=== PATIENT | male | born 1950 | race Caucasian/White ===

== ENCOUNTER 2018-01-07 02:00 | Emergency (ER) | payer OTHER, MEDICARE ==
[2018-01-07 02:17] VITALS: TEMP 98.1
[2018-01-07] MEDS ORDERED: SODIUM CHLORIDE 0.9% 1,000 ML IV STA (02:52)
[2018-01-07 03:22] LABS: Basophils % (A) 0 %; Eosinophils % (A) 0 %; HCT 37.3 % (39.0-53.0); HGB 12.2 gm/dL (13.0-17.5); Lymphocytes # (A) 1.2 k/uL (1.0-4.8); Lymphocytes % (A) 12 %; MCH 29.5 pg (25.0-35.0); MCHC 32.6 g/dL (31.0-37.0); MCV 90.5 fL (80.0-100.0); Mean Platelet Volume 7.6; Monocytes # (A) 0.5 k/uL (0-1.0); Monocytes % (A) 5 %; Neutrophils # (A) 7.9 k/uL (1.3-7.7); Neutrophils % (A) 82 %; Platelet Count 194 k/uL (150-450); RBC 4.12 m/uL (4.30-5.90); RDW 13.5 % (11.5-15.5); WBC 9.7 k/uL (3.8-10.6)
[2018-01-07 03:34] LABS: ALT 40 U/L (21-72); AST 24 U/L (17-59); Albumin 3.7 g/dL (3.5-5.0); Alkaline Phosphatase 42 U/L (38-126); Anion Gap 7 mmol/L; Blood Urea Nitrogen 32 mg/dL (9-20); Calcium 9.1 mg/dL (8.4-10.2); Carbon Dioxide 25 mmol/L (22-30); Chloride 105 mmol/L (98-107); Glucose 175 mg/dL (74-99); Magnesium 1.9 mg/dL (1.6-2.3); Potassium 4.2 mmol/L (3.5-5.1); Sodium 137 mmol/L (137-145); Total Bilirubin 0.9 mg/dL (0.2-1.3)
[2018-01-07 03:42] LABS: INR 1.1 (<1.2); Prothrombin Time 10.8 sec (9.0-12.0)
[2018-01-07 03:51] LABS: Creatine Kinase 257 U/L (55-170)
[2018-01-07 04:04] LABS: Creatine Kinase MB 3.1 ng/mL (0.0-2.4); Troponin I <0.012 ng/mL (0.000-0.034)
[2018-01-07 04:06] LABS: Partial Thromboplastin Time 18.3 sec (22.0-30.0)
--- NOTE | 2018-01-07 04:10 | CT ---
EXAMINATION TYPE: CT abdomen pelvis w con DATE OF EXAM: 01/07/2018 COMPARISON: None HISTORY: No prior, syncope and rectal bleeding CT DLP: 911.00 mGycm Automated exposure control for dose reduction was used. TECHNIQUE: Helical acquisition of images was performed from the lung bases through the pelvis. CONTRAST: Performed without Oral Contrast and with IV Contrast, patient injected with 100 mL of Isovue 300. FINDINGS: Lung bases are clear of consolidation. There is no pleural effusion. Liver spleen pancreas gallbladder appear normal. Bile ducts are not dilated. There is no adrenal mass . Kidneys show satisfactory contrast opacification. There is no hydronephrosis. There is a 1 cm corti ronald cyst medial right kidney. The ureters are not dilated. There is no retroperitoneal adenopathy. Ab dominal aorta is atheromatous. Bladder distends smoothly. There are numerous phleboliths in the pelvi s. There is no free fluid in the pelvis. There is no mesenteric adenopathy or edema. I see no intestinal wall thickening. There are no dilated loops. There is no inguinal hernia. Appendix is not seen. There is no sign of appendicitis. Abdomina l aorta is atheromatous. There are spondylotic changes in the lumbar spine. Bony pelvis appears intac t. There is degenerative disc space narrowing at L2-3 L3-4. There is some colonic diverticulosis with out diverticulitis. IMPRESSION: MINIMAL DIVERTICULOSIS. OTHERWISE NEGATIVE EXAM. Mild lumbar spondylotic changes.
--- NOTE | 2018-01-07 04:22 | ED ---
General Adult HPI - General Source: patient, family, RN notes reviewed Mode of arrival: ambulatory Limitations: no limitations <Alexis Montano P - Last Filed: 01/07/18 04:44> <Yaneth Mejia P - Last Filed: 01/07/18 05:40> - General Chief complaint: GI Bleed Stated complaint: Rectal bleeding Time Seen by Provider: 01/07/18 02:24 - History of Present Illness Initial comments: 67-year-old male with a past medical history of type 2 diabetes and MIpresents to the emergency department for a chief complaint of GI bleed 2 hours. Patient states that he has had difficulty having bowel movements over the past few months. He states that he has been using Fleet enemas which do give him a soft bowel movement usually. Patient states that today he took a fleet enema about 12 hours ago. Patient states that since that time he started to have increased abdominal pain. Patient states pain is a sharp and cramping pain in his lower abdomen. Patient states that he was sleeping tonight when he had a severe pain in the abdomen. Patient states he got up to use the bathroom when he became syncopal and fell onto the bed. Patient states he does believe he lost consciousness. Patient states that he when he woke up he did feel clammy. He states he then went to the bathroom and noted severe GI bleed into the toilet. Patient states he does not think he passed any stool but passed significant amount of blood. Patient states he has had a colonoscopy about 6 years ago and was diagnosed with diverticulosis. Patient states pain has mostly resolved at this time. Patient has no other complaints at this time including shortness of breath, chest pain, nausea or vomiting, headache, or visual changes. (Alexis Montano) - Related Data Allergies Allergy/AdvReac Type Severity Reaction Status Date / Time propoxyphene [From Darvon] Allergy Rash/Hives Verified 01/07/18 02:17 Review of Systems ROS Other: All systems not noted in ROS Statement are negative. <Alexis Montano P - Last Filed: 01/07/18 04:44> ROS Other: All systems not noted in ROS Statement are negative. <Yaneth Mejia P - Last Filed: 01/07/18 05:40> ROS Statement: Those systems with pertinent positive or pertinent negative responses have been documented in the HPI. Past Medical History Past Medical History: Diabetes Mellitus, Myocardial Infarction ([place]) Additional Past Medical History / Comment(s): angina, arthritis. Liver pockets in colon History of Any Multi-Drug Resistant Organisms: None Reported Past Surgical History: Heart Catheterization Past Psychological History: PTSD Smoking Status: Light tobacco smoker Past Alcohol Use History: Rare Past Drug Use History: None Reported <Alexis Montano P - Last Filed: 01/07/18 04:44> General Exam Limitations: no limitations General appearance: alert, in no apparent distress Head exam: Present: atraumatic, normocephalic, normal inspection Eye exam: Present: normal appearance, PERRL, EOMI. Absent: scleral icterus, conjunctival injection, periorbital swelling ENT exam: Present: normal exam, normal oropharynx, mucous membranes moist Neck exam: Present: normal inspection, full ROM. Absent: tenderness, meningismus, lymphadenopathy Respiratory exam: Present: normal lung sounds bilaterally. Absent: respiratory distress, wheezes, rales, rhonchi, stridor Cardiovascular Exam: Present: regular rate, normal rhythm, normal heart sounds. Absent: systolic murmur, diastolic murmur, rubs, gallop, clicks GI/Abdominal exam: Present: soft, tenderness (Mild generalized abdominal tenderness worse in the left lower quadrant without guarding or rebound), normal bowel sounds. Absent: distended, guarding, rebound, rigid Rectal exam: Present: normal rectal tone, heme (+) stool, bloody stool. Absent : fecal impaction, mass Neurological exam: Present: alert, oriented X3, CN II-XII intact Psychiatric exam: Present: normal affect, normal mood <Alexis Montano P - Last Filed: 01/07/18 04:44> Vital Signs 01/07/18 01/07/18 01/07/18 02:11 04:10 04:52 Temperature 98.1 F Pulse Rate 89 74 72 Respiratory 18 14 16 Rate Blood Pressure 113/73 138/71 102/57 O2 Sat by Pulse 99 97 96 Oximetry EKG Findings - EKG Comments: EKG Findings:: EKG shows a normal sinus rhythm, ventricular rate 77, LA interval 178, QRS duration 102, QTC of 459 <Alexis Montano P - Last Filed: 01/07/18 04:44> Medical Decision Making - Lab Data Result diagrams: 01/07/18 02:34 01/07/18 02:34 <Alexis Montano P - Last Filed: 01/07/18 04:44> - Lab Data Result diagrams: 01/07/18 02:34 01/07/18 02:34 <Yaneth Mejia - Last Filed: 01/07/18 05:40> - Medical Decision Making 49-year-old male presents to the emergency department for a chief complaint of GI bleed occurring about 2 hours ago. Patient states that he used a Fleet enema earlier today and it caused severe abdominal cramping. Patient states that he was trying to sleep and he had severe pain and got up she is the bathroom. Patient states that he became syncopal and fell onto the bed at this time. Patient states he then went to the bathroom and had a bowel movement consisting of mostly blood. Patient states he felt clammy at that time and became concerned about the bleed. He denies any chest pain or shortness of breath. He does have a history of a hemorrhagic ulcer years ago. On exam patient does have mild generalized abdominal tenderness worse in the left lower quadrant. No rebound or guarding on exam. Rectal exam was positive for occult blood Hemoglobin stable at 12.2. CBC and CMP unremarkable. Troponin less than 0.012. CK-MB 3.1 and total creatine kinase 257. EKG did not show any evidence of ST elevation or depression. CT showed diverticulosis with an otherwise normal exam. Patient likely experienced a syncopal episode from GI bleed. At this time patient is feeling much better and pain is controlled. Patient is stable and states he is ready to go home. Patient was educated to take 3 or 4. MiraLAX per day for the next week which she has at home. He will also continue to take his stool softeners. Patient will follow-up with GI. He will return if he has any worsening symptoms which she agrees to do (Alexis Montano) I was available for consultation in the emergency department. The history and physical exam were done by the midlevel provider. I was consulted for this patient's care. I reviewed the case with the midlevel provider and based on their presentation of the patient, I agree with the assessment, medical decision making and plan of care as documented. (Yaneth Mejia) - Lab Data Lab Results 01/07/18 01/07/18 01/07/18 Range/Units 02:34 02:34 02:34 WBC 9.7 (3.8-10.6) k/uL RBC 4.12 L (4.30-5.90) m/uL Hgb 12.2 L (13.0-17.5) gm/dL Hct 37.3 L (39.0-53.0) % MCV 90.5 (80.0-100.0) fL MCH 29.5 (25.0-35.0) pg MCHC 32.6 (31.0-37.0) g/dL RDW 13.5 (11.5-15.5) % Plt Count 194 (150-450) k/uL Neutrophils % 82 % Lymphocytes % 12 % Monocytes % 5 % Eosinophils % 0 % Basophils % 0 % Neutrophils # 7.9 H (1.3-7.7) k/uL Lymphocytes # 1.2 (1.0-4.8) k/uL Monocytes # 0.5 (0-1.0) k/uL Eosinophils # 0.0 (0-0.7) k/uL Basophils # 0.0 (0-0.2) k/uL PT (9.0-12.0) sec INR (<1.2) APTT (22.0-30.0) sec Sodium 137 (137-145) mmol/L Potassium 4.2 (3.5-5.1) mmol/L Chloride 105 (98-107) mmol/L Carbon Dioxide 25 (22-30) mmol/L Anion Gap 7 mmol/L BUN 32 H (9-20) mg/dL Creatinine 0.93 (0.66-1.25) mg/dL Est GFR (CKD-EPI)AfAm >90 (>60 ml/min/1.73 sqM) Est GFR (CKD-EPI)NonAf 84 (>60 ml/min/1.73 sqM) Glucose 175 H (74-99) mg/dL Calcium 9.1 (8.4-10.2) mg/dL Magnesium 1.9 (1.6-2.3) mg/dL Total Bilirubin 0.9 (0.2-1.3) mg/dL AST 24 (17-59) U/L ALT 40 (21-72) U/L Alkaline Phosphatase 42 (38-126) U/L Total Creatine Kinase 257 H (55-170) U/L CK-MB (CK-2) 3.1 H (0.0-2.4) ng/mL CK-MB (CK-2) Rel Index 1.2 Troponin I <0.012 (0.000-0.034) ng/mL Total Protein 6.0 L (6.3-8.2) g/dL Albumin 3.7 (3.5-5.0) g/dL Stool Occult Blood (Negative) 01/07/18 01/07/18 Range/Units 02:34 02:58 WBC (3.8-10.6) k/uL RBC (4.30-5.90) m/uL Hgb (13.0-17.5) gm/dL Hct (39.0-53.0) % MCV (80.0-100.0) fL MCH (25.0-35.0) pg MCHC (31.0-37.0) g/dL RDW (11.5-15.5) % Plt Count (150-450) k/uL Neutrophils % % Lymphocytes % % Monocytes % % Eosinophils % % Basophils % % Neutrophils # (1.3-7.7) k/uL Lymphocytes # (1.0-4.8) k/uL Monocytes # (0-1.0) k/uL Eosinophils # (0-0.7) k/uL Basophils # (0-0.2) k/uL PT 10.8 (9.0-12.0) sec INR 1.1 (<1.2) APTT 18.3 L (22.0-30.0) sec Sodium (137-145) mmol/L Potassium (3.5-5.1) mmol/L Chloride (98-107) mmol/L Carbon Dioxide (22-30) mmol/L Anion Gap mmol/L BUN (9-20) mg/dL Creatinine (0.66-1.25) mg/dL Est GFR (CKD-EPI)AfAm (>60 ml/min/1.73 sqM) Est GFR (CKD-EPI)NonAf (>60 ml/min/1.73 sqM) Glucose (74-99) mg/dL Calcium (8.4-10.2) mg/dL Magnesium (1.6-2.3) mg/dL Total Bilirubin (0.2-1.3) mg/dL AST (17-59) U/L ALT (21-72) U/L Alkaline Phosphatase (38-126) U/L Total Creatine Kinase (55-170) U/L CK-MB (CK-2) (0.0-2.4) ng/mL CK-MB (CK-2) Rel Index Troponin I (0.000-0.034) ng/mL Total Protein (6.3-8.2) g/dL Albumin (3.5-5.0) g/dL Stool Occult Blood Positive (Negative) Disposition Is patient prescribed a controlled substance at d/c from ED?: No Time of Disposition: 04:46 <Alexis Montano P - Last Filed: 01/07/18 04:44> <Yaneth Mejia P - Last Filed: 01/07/18 05:40> Clinical Impression: Hematochezia Disposition: HOME SELF-CARE Condition: Good Instructions: Gastrointestinal Bleeding (ED) Additional Instructions: Please take 3 or 4 cap fulls of MiraLAX per day and continue stool softeners. Please follow up with GI in 1-2 days. Return immediately to the emergency department if you have any worsening symptoms. Referrals: Dean Adrian DO [Primary Care Provider] - 1-2 days Fernando Arteaga MD [STAFF PHYSICIAN] - 1-2 days
[2018-01-07 04:53] VITALS: BP 102/57; PULSE 72; RESP 16
== END 2018-01-07 04:56 | disposition home or self-care (01) ==
LOC: EC 02:00
DX: K92.1 Melena (principal); R55 Syncope and collapse; K57.90 Diverticulosis of intestine, part unspecified, without perforation or abscess without bleeding; F17.200 Nicotine dependence, unspecified, uncomplicated; Z87.19 Personal history of other diseases of the digestive system; Z98.890 Other specified postprocedural states; Z88.5 Allergy status to narcotic agent
CPT/HCPCS: 36415; 93005; 80053; 82550; 82553; 83735; 84484; 85025; 85610; 85730; 82272; 74177; 99285; 96360; 96361; Q9967

== ENCOUNTER 2018-01-16 07:56 | Day surgery (SDC) | payer MEDICARE, OTHER ==
[2018-01-14 11:20] VITALS: BMI 25.3
[~2018-01-16 07:56] MED LIST: LACTATED RINGERS 1,000 ML IV SCH
[2018-01-16 08:19] VITALS: TEMP 97.8
[2018-01-16] MEDS ORDERED: LIDOCAINE 1% 20 ML VIAL (10MG/ML) FOR IV START INTRADERMA ONE (08:42)
[2018-01-16 08:48] LABS: Glucose,Whole Blood 100 mg/dL (75-99)
[2018-01-16] MEDS ORDERED: PROPOFOL 10 MG/ML 20 ML VIAL IV ONE (09:20)
[2018-01-16] MEDS ORDERED: LIDOCAINE 1% INJ 10MG/ML (20 ML MDV) ONE (09:20)
[2018-01-16 10:08] VITALS: RESP 16
--- NOTE | 2018-01-16 10:17 | P.PCN ---
Date of Procedure: 01/16/18 Procedure(s) Performed: Procedures: 1. Esophagogastroduodenoscopy and biopsy. 2. Total colonoscopy. Preoperative diagnosis: History of GI bleeding. Postoperative diagnosis: 1. Small sliding hiatal hernia with no obvious esophagitis or complicated reflux disease. 2. Mild gastritis and duodenitis with no ulcers or active bleeding. 3. Biopsies obtained from the antrum and esophagus. 4. Colon exam reveals diffuse diverticulosis but no evidence of acute diverticulitis, strictures, polyps or cancer. 4. No angiodysplasia, bleeding or potential sources of bleeding. 5. Low-grade internal hemorrhoids without bleeding at the time of this exam. Preparation: HalfLytely prep. Sedation: Was provided by anesthesia. Brief clinical history: The patient is a 67-year-old male who is scheduled for this evaluation because of an episode of GI bleeding that he had around 2 weeks ago that lasted several days. It was mostly fresh bleeding per rectum. The patient denied any significant GI complaints other than his bleeding. The patient was evaluated in the emergency room and was subsequently referred to our practice at that he was evaluated at the [facility]. Procedure: With the patient on his left lateral decubitus position and after informed consent and adequate sedation, I passed the Olympus-GIF 160 video upper endoscope through the cricopharyngeus down the esophagus. GE junction was around 40-41 cm from the incisors and there was a small sliding hiatal hernia with no obvious esophagitis or complicated reflux disease. The endoscope was then passed into the stomach which was insufflated with air and inspected in detail including the retroflex view in the cardia. There was some erythema and mottling most obvious in the antrum and prepyloric area with few scattered fading erosions. There were no ulcers or active bleeding. Pyloric channel did not show any ulcers. Duodenal bulb showed some erythema but no ulcers or erosions. Post bulbar area and descending duodenum appeared healthy. I obtained biopsies from the antrum and esophagus then the endoscope was withdrawn and I proceeded with the colonoscopy. Perianal area did not show any fissures or fistulas. There were no masses felt on digital rectal examination. The Olympus CFQ 160L video colonoscope was then inserted in the rectum in the usual fashion and advanced to the cecum. There were multiple diverticular orifices noted scattered along the length of the bowel with was no evidence of acute diverticulitis or strictures. The mucosa appeared healthy. There was no polyps or tumors. No angiodysplasia or other potential sources of bleeding or any evidence of bleeding at the time of this exam. I retroflexed the endoscope in the rectum before the endoscope was withdrawn. Low-grade internal hemorrhoids were noted with no evidence of bleeding. The patient tolerated the procedure well. Plan: The patient was reassured. Discussed dietary measures. Will await biopsy results and make further plans based on his course.
[2018-01-16 10:28] VITALS: BP 159/90; PULSE 68
== END 2018-01-16 11:32 | disposition home or self-care (01) ==
LOC: ORWHC2ENDO 07:56
DX: K29.50 Unspecified chronic gastritis without bleeding (principal); B96.81 Helicobacter pylori [H. pylori] as the cause of diseases classified elsewhere; K20.9 Esophagitis, unspecified; K44.9 Diaphragmatic hernia without obstruction or gangrene; K29.80 Duodenitis without bleeding; K57.90 Diverticulosis of intestine, part unspecified, without perforation or abscess without bleeding; K64.8 Other hemorrhoids; I25.10 Atherosclerotic heart disease of native coronary artery without angina pectoris; I10 Essential (primary) hypertension; F17.290 Nicotine dependence, other tobacco product, uncomplicated; I25.2 Old myocardial infarction; J38.01 Paralysis of vocal cords and larynx, unilateral; E11.9 Type 2 diabetes mellitus without complications; Z79.84 Long term (current) use of oral hypoglycemic drugs; Z79.899 Other long term (current) drug therapy; Z88.5 Allergy status to narcotic agent
CPT/HCPCS: 88305; 45378; 43239; J2001; J2704

== ENCOUNTER 2020-05-25 10:20 | Emergency (ER) | payer OTHER, MEDICARE ==
[2020-05-25 10:55] VITALS: BP 125/77; PULSE 65; RESP 18; TEMP 98
--- NOTE | 2020-05-25 12:09 | ED ---
Lower Extremity Injury HPI - General Source: patient, RN notes reviewed Mode of arrival: ambulatory Limitations: no limitations <Pal Genao - Last Filed: 05/25/20 13:36> <Devi Hall - Last Filed: 05/31/20 23:28> - General Chief Complaint: Extremity Injury, Lower Stated Complaint: leg pain Time Seen by Provider: 05/25/20 12:02 - History of Present Illness Initial Comments: Patient is a 70-year-old male that presents to emergency department complaining of right lower extremity pain. He notes that he does not have any swelling redness or tenderness. He notes that [facility] [place] [facility] they [facility] here to rule out a DVT. He notes that they also told to quit taking his 80 mg of atorvastatin due to side effect of muscle cramps and spasms. He notes that he is awoken from sleep regularly with like charley horse type pains and cramping. He denied any weakness numbness tingling or decreased range of motion or strength fever fatigue chills chest pendulous breath headache nausea vomiting diarrhea constipation (Pal Genao) - Related Data Home Medications Medication Instructions Recorded Confirmed Aspirin 325 mg PO DAILY 01/14/18 05/25/20 Atorvastatin [Lipitor] 40 mg PO HS 01/14/18 05/25/20 Lidocaine 5% Patch [Lidoderm] 1 patch TOPICAL DAILY 01/14/18 05/25/20 Metoprolol Tartrate [Lopressor] 25 mg PO BID 01/14/18 05/25/20 Prazosin HCl 2 mg PO HS MDD TAKES FOR PTSD 01/14/18 05/25/20 metFORMIN HCL [Glucophage] 500 mg PO BID 01/14/18 05/25/20 Ketotifen 0.025% Ophth Soln 1 drop BOTH EYES BID 05/25/20 05/25/20 [Zaditor] Lisinopril-Hctz 10-12.5 mg 1 tab PO DAILY 05/25/20 05/25/20 [Zestoretic 10-12.5] Sennosides/Docusate Sodium [Senna 2 tab PO BID 05/25/20 05/25/20 Plus 8.6-50 mg Tablet] Previous Rx's Medication Instructions Recorded Baclofen [Lioresal] 5 mg PO TID 7 Days #21 tablet 05/25/20 Allergies Allergy/AdvReac Type Severity Reaction Status Date / Time propoxyphene [From Darvon] Allergy Rash/Hives Verified 05/25/20 12:33 Review of Systems ROS Other: All systems not noted in ROS Statement are negative. <Pal Genao - Last Filed: 05/25/20 13:36> ROS Other: All systems not noted in ROS Statement are negative. <Devi Hall - Last Filed: 05/31/20 23:28> ROS Statement: Those systems with pertinent positive or pertinent negative responses have been documented in the HPI. Past Medical History Past Medical History: Chest Pain / Angina, Diabetes Mellitus, GI Bleed, Hyperlipidemia, Hypertension, Myocardial Infarction ([place]), Osteoarthritis ([place]), Sleep Apnea/CPAP/BIPAP Additional Past Medical History / Comment(s): occasional angina relieved with rest ., Hx of irregular heart beat., DDD with back pain., ischemic heart ., Hx of fatty liver., Agent [place] Exposure., sleep apnea (no machine), Diverticulosis., Hx of bleeding ulcer (1995), wears right knee brace., constipation . Last Myocardial Infarction Date:: ? LATE OR EARLY History of Any Multi-Drug Resistant Organisms: None Reported Past Surgical History: Appendectomy, Back Surgery, Heart Catheterization Additional Past Surgical History / Comment(s): HEART CATH ([facility]., CERVICAL SURGERY with plate-USED BONE FROM HIS HIP . skin cancer removed from chest Past Anesthesia/Blood Transfusion Reactions: Previous Problems w/ Anesthesia Additional Past Anesthesia/Blood Transfusion Reaction / Comment(s): PT STATES WITH CERVICAL SURGERY- VOCAL CORD WAS CUT AND HE COULD NOT SPEAK FOR 8-12 MONTHS. Past Psychological History: PTSD Smoking Status: Never smoker Past Alcohol Use History: Rare Past Drug Use History: None Reported - Past Family History Brother(s) Family Medical History: Deep Vein Thrombosis (DVT) Sister(s) Family Medical History: Deep Vein Thrombosis (DVT) Daughter(s) Family Medical History: Pulmonary Embolus Additional Family Medical History / Comment(s): PE x 12 months <Pal Genao - Last Filed: 05/25/20 13:36> General Exam Limitations: no limitations General appearance: alert, in no apparent distress Head exam: Present: atraumatic, normocephalic, normal inspection Eye exam: Present: normal appearance, PERRL, EOMI. Absent: scleral icterus, conjunctival injection, periorbital swelling ENT exam: Present: normal exam, mucous membranes moist Respiratory exam: Present: normal lung sounds bilaterally. Absent: respiratory distress, wheezes, rales, rhonchi, stridor Cardiovascular Exam: Present: regular rate, normal rhythm, normal heart sounds. Absent: systolic murmur, diastolic murmur, rubs, gallop, clicks GI/Abdominal exam: Present: soft, normal bowel sounds. Absent: distended, tenderness, guarding, rebound, rigid Extremities exam: Present: normal inspection, full ROM, normal capillary refill, other (Right knee brace was often the exam.). Absent: tenderness, pedal edema, joint swelling, calf tenderness Neurological exam: Present: alert, oriented X3, CN II-XII intact Psychiatric exam: Present: normal affect, normal mood Skin exam: Present: warm, dry, intact, normal color. Absent: rash <Pal Genao - Last Filed: 05/25/20 13:36> Course Vital Signs 05/25/20 10:50 Temperature 98.0 F Pulse Rate 65 Respiratory 18 Rate Blood Pressure 125/77 O2 Sat by Pulse 94 L Oximetry Medical Decision Making - Radiology Data Radiology results: image reviewed <Pal Genao - Last Filed: 05/25/20 13:36> <Devi Hall - Last Filed: 05/31/20 23:28> - Medical Decision Making 70-year-old male complaining of right leg cramping and pain. D-dimer and ultrasound of right lower external ordered to rule out DVT. D-dimer negative. Case discussed with Dr. Hall, decided patient could discharge home with follow- up primary care. (Pal Genao) I was available for consultation in the emergency department. The history and physical exam were done by the midlevel provider. I was consulted for this patients care. I reviewed the case with the midlevel provider and based on their presentation of the patient, I agree with the assessment, medical decision making and plan of care as documented. Chart was dictated using [employer] dictation software. Attempts were made to correct any dictation errors however some typographical errors may persist. (Devi Hall) - Lab Data Lab Results 05/25/20 Range/Units 12:27 D-Dimer 0.35 (<0.60) mg/L FEU - Radiology Data Right leg ultrasound: Negative for DVT. (Pal Genao) Disposition Is patient prescribed a controlled substance at d/c from ED?: No Time of Disposition: 13:37 <Pal Genao - Last Filed: 05/25/20 13:36> <Devi Hall - Last Filed: 05/31/20 23:28> Clinical Impression: Muscle spasm, Muscle cramp Disposition: HOME SELF-CARE Condition: Stable Instructions (If sedation given, give patient instructions): Leg Cramps (ED) Additional Instructions: Please return to the Emergency Department if symptoms worsen or any other concerns. Follow-up with primary care and discuss statin use and muscle cramping side eff ect. Can take CoQ10 [id number] supplement to help with muscle cramps. Prescriptions: Baclofen [Lioresal] 5 mg PO TID 7 Days #21 tablet Referrals: [facility]inic [Primary Care Provider] - 1-2 days
--- NOTE | 2020-05-25 13:04 | US ---
EXAMINATION TYPE: US venous doppler duplex LE RT DATE OF EXAM: 05/25/2020 12:08 PM COMPARISON: NONE CLINICAL HISTORY: 70-year-old male pain. SIDE PERFORMED: Right TECHNIQUE: The lower extremity deep venous system is examined utilizing real time linear array sonog anastacio with graded compression, doppler sonography and color-flow sonography. FINDINGS: VESSELS IMAGED: Common Femoral Vein Deep Femoral Vein Greater Saphenous Vein * Femoral Vein Popliteal Vein Small Saphenous Vein * Proximal Calf Veins Posterior tibial veins (* superficial vessels) Right Leg: Negative for DVT IMPRESSION: No evidence for DVT within the right lower extremity.
== END 2020-05-25 14:00 | disposition home or self-care (01) ==
LOC: EC 10:20
DX: M62.838 Other muscle spasm (principal); I20.9 Angina pectoris, unspecified; E11.9 Type 2 diabetes mellitus without complications; E78.5 Hyperlipidemia, unspecified; I10 Essential (primary) hypertension; M19.90 Unspecified osteoarthritis, unspecified site; I25.2 Old myocardial infarction; G47.33 Obstructive sleep apnea (adult) (pediatric); Z99.89 Dependence on other enabling machines and devices; Z79.82 Long term (current) use of aspirin; Z79.84 Long term (current) use of oral hypoglycemic drugs; Z88.8 Allergy status to other drugs, medicaments and biological substances; Z79.899 Other long term (current) drug therapy; Z90.49 Acquired absence of other specified parts of digestive tract; Z95.5 Presence of coronary angioplasty implant and graft; Z85.828 Personal history of other malignant neoplasm of skin
CPT/HCPCS: 36415; 85379; 99284

== ENCOUNTER → 2020-11-17 | Outpatient (CLI) | payer OTHER, MEDICARE | END | disposition home or self-care (01) | LOC: LABPAT 10:07 | PROVIDERS: ATTEND Orthopaedic Surgery | DX: Z01.812 Encounter for preprocedural laboratory examination (principal); M17.11 Unilateral primary osteoarthritis, right knee; Z22.322 Carrier or suspected carrier of Methicillin resistant Staphylococcus aureus | CPT/HCPCS: 87070 ==

== ENCOUNTER 2020-12-13 13:37 | Day surgery (SDC) | payer MEDICARE, OTHER ==
[2020-12-09 14:38] VITALS: BMI 27.6
--- NOTE | 2020-12-12 12:02 | HP ---
HISTORY AND PHYSICAL CHIEF COMPLAINT: Right knee pain. HISTORY OF PRESENT ILLNESS: The patient is a 70-year-old retired male who presents with right knee pain, worsening over the past several years. He is having anterior and medial pain, worse with weightbearing activities. He notes it gives out. He has stiffness as well. He has tried medications in addition to Voltaren gel, without much relief. He does use a cane. He has been limping. PAST MEDICAL HISTORY: Significant for type 2 diabetes, hypertension, heart disease, hyperlipidemia and neuropathy. PAST SURGICAL HISTORY: Significant for appendectomy, hand surgery and neck surgery. CURRENT MEDICATIONS: Aspirin, atorvastatin, lisinopril, metformin, metoprolol and prazosin. ALLERGIES: HE DENIES DRUG ALLERGIES. FAMILY HISTORY: Significant for cancer and heart disease. SOCIAL HISTORY: Significant for social alcohol use. He also intermittently smokes cigars. PHYSICAL EXAMINATION: On examination, patient is approximately 6 feet tall, 195 pounds of mesomorphic habitus. HEENT exam is nonfocal. Neck is supple. He has painless passive motion of the right hip. Straight-leg raise is negative. Active motion of right knee minus 20 to 100 degrees of flexion. He has a mild effusion. He is tender about the medial joint line. Collaterals are stable, Mary Jane is negative, Teofilo's is equivocal. He has genu varum alignment. His distal neurovascular exam appears intact in the right lower extremity. X-rays to include weightbearing notch, lateral and Merchant views of the right knee obtained in the office show severe medial compartment osteoarthrosis with [id number] changes and subchondral sclerosis. IMPRESSION: Right knee severe medial compartment osteoarthrosis. RECOMMENDATIONS: I talked to the patient at length regarding his condition and treatment options. At this point he is quite limited because of pain related to his osteoarthrosis despite previous conservative measures. After thorough discussion, he opted to proceed with surgery. We will plan to proceed with right total knee arthroplasty. In addition we will institute DVT prophylaxis postoperatively. Risks and benefits were discussed at length in layman's terms. MMCYNDIL / TRACEYN: [id number] /
[~2020-12-13 13:37] MED LIST changes: +ACETAMINOPHEN TAB 500 MG TAB PO PRN; +DEXAMETHASONE SOD PHOSPHATE 4 MG/ML 1 ML VIAL IV ONE; +HYDROmorphone 0.5 MG/0.5 ML SYRINGE IVP PRN; -LACTATED RINGERS 1,000 ML IV SCH; +MELOXICAM 7.5 MG TAB PO PRN; +ONDANSETRON 4 MG/2 ML VIAL IVP ONE; +ROPIVACAINE/EPI/CLONIDINE/KET 50 ML SYRINGE MISCELLANE PRN; +TRANEXAMIC ACID 1,000 MG in SODIUM CHLORIDE 0.9% 100 ML IVPB PRN
[2020-12-13 14:51] LABS: Glucose,Whole Blood 105 mg/dL (75-99)
[2020-12-13] MEDS: LACTATED RINGERS 1,000 ML IV SCH (14:54)
[2020-12-13] MEDS ORDERED: ONDANSETRON 4 MG/2 ML VIAL ONE (14:56)
[2020-12-13] MEDS ORDERED: MIDAZOLAM 2 MG/2 ML VIAL IVP ONE ×2 (16:02→16:28)
[2020-12-13] MEDS ORDERED: fentaNYL (PF) 50 MCG/ML 2 ML AMP IVP ONE ×2 (16:02→16:28)
[2020-12-13] MEDS ORDERED: ROPIVACAINE 0.2%-NS ON-Q PUMP 1,090 MG, EMPTY PAIN BALL 1 EACH MISCELLANE PRN (17:16)
--- NOTE | 2020-12-13 17:18 | P.ANPRN ---
Procedure Note - Anesthesia - Nerve Block Performed Right Adductor Canal Infusion Time Out Performed: Yes Date of Procedure: 12/13/20 Procedure Start Time: 16:27 Procedure Stop Time: 16:38 Location of Patient: PreOp Indication: Requested by Surgeon Specifically requested for management of pain by DrKing: Lewis Correia Sedation Type: Sedate with meaningful contact maintained Preparation: Sterile Prep, Sterile Dressing Position: Supine Needle Types: Pajunk Needle Gauge: 18 Ultrasound used to visualize needle placement: Yes Ultrasound used to observe medication spread: Yes Injectate: 0.5% Ropivacaine (see comment for volume) (15 ml +10 ml NS) Blood Aspirated: No Pain Paresthesia on Injection Noted: No Resistance on Injection: Normal Image Stored and Saved: Yes Events: Uneventful and Well Tolerated
--- NOTE | 2020-12-13 17:19 | P.ANPRN ---
Procedure Note - Anesthesia - Nerve Block Performed Right iPack Single Time Out Performed: Yes Date of Procedure: 12/13/20 Procedure Start Time: 16:40 Procedure Stop Time: 16:45 Location of Patient: PreOp Indication: Requested by Surgeon Specifically requested for management of pain by DrKing: Lewis Correia Sedation Type: Sedate with meaningful contact maintained Preparation: Sterile Prep Position: Left Lateral Needle Types: Pajunk Needle Gauge: 21 Ultrasound used to visualize needle placement: Yes Ultrasound used to observe medication spread: Yes Injectate: 0.5% Ropivacaine (see comment for volume) (15 ml +10 ml NS) Blood Aspirated: No Pain Paresthesia on Injection Noted: No Resistance on Injection: Normal Image Stored and Saved: Yes Events: Uneventful and Well Tolerated
[2020-12-13] MEDS ORDERED: MIDAZOLAM 2 MG/2 ML VIAL ONE (17:20)
[2020-12-13] MEDS ORDERED: SODIUM CHLORIDE 0.9% 100 ML BAG ONE (17:20)
[2020-12-13] MEDS ORDERED: ROPIVACAINE 5 MG/ML 30 ML VIAL ONE (17:20)
[2020-12-13] MEDS ORDERED: fentaNYL (PF) 50 MCG/ML 2 ML AMP ONE (17:20)
[2020-12-13] MEDS ORDERED: TRANEXAMIC ACID 1,000 MG/10 ML VIAL ONE (17:20)
[2020-12-13] MEDS ORDERED: PROPOFOL 10 MG/ML 20 ML VIAL IV ONE (17:20)
[2020-12-13] MEDS ORDERED: SODIUM CHLORIDE 0.9% (PF) 10 ML VIAL ONE (17:20)
[2020-12-13] MEDS ORDERED: ceFAZolin 1,000 MG in SODIUM CHLORIDE 0.9% 1,000 ML IRRIGATION ONE (18:10)
[2020-12-13] MEDS ORDERED: LACTATED RINGERS 1,000 ML IV ONE (18:26)
[2020-12-13] MEDS ORDERED: HYDROcodone/APAP 5-325MG 1 EACH TAB PO PRN (18:42)
[2020-12-13] MEDS ORDERED: NALOXONE 0.4 MG/ML 1 ML VIAL IV PRN (18:42)
[2020-12-13] MEDS ORDERED: HYDROmorphone 0.2 MG/1 ML SYRINGE IVP PRN (18:42)
[2020-12-13] MEDS ORDERED: HYDROmorphone 0.5 MG/0.5 ML SYRINGE IVP PRN (18:42)
--- NOTE | 2020-12-13 19:23 | P.OP ---
Date of Procedure: 12/13/20 Preoperative Diagnosis: Right knee severe tricompartmental osteoarthrosis Postoperative Diagnosis: Same Procedure(s) Performed: Right total knee arthroplastycementedcruciate retaining Implants: Depuy Attune size 8 cemented femoral component, size 7 cemented tibial component, 9 mm articular surface, 38 mm cemented patellar component. This is a cruciate retaining implant. Anesthesia: regional, local, spinal Surgeon: Lewis Correia Customer Care Assistant #1: Camacho Badillo Estimated Blood Loss (ml): 50 Pathology: other (Bone fragments) Condition: stable Disposition: PACU Indications for Procedure: The patient's 70-year-old male who presents with progressive right knee pain secondary to osteoarthrosis despite conservative measures. A discussion of the risks and benefits of operative intervention versus continued conservative carmelo sures was discussed with the patient. He opted to proceed with surgery. Operative risks to include infection, neurovascular injury, fracture, development of blood clots, possible component loosening/failure need for subsequent procedures was discussed. Informed consent was obtained. Operative Findings: As below Description of Procedure: The patient was brought to the operating room, and after induction of spinal anesthesia the right lower extremity was prepped and draped in a normal fashion. The tourniquet was inflated to 270 mmHg. A longitudinal incision extending 3 finger breaths above the superior pole of the patella extending to the medial aspect the tibial tubercle was then made. The skin and subcutaneous tissues were divided sharply. Electrocautery was used for hemostasis. A medial parapatellar arthrotomy was then performed. The medial soft tissues to include the superficial and deep portions of the medial collateral ligament as well as the medial hamstring tendons were elevated subperiosteally. The proximal medial tibia osteophytes were carefully removed. The patella was everted. The knee was flexed. A portion of the retropatellar fat pad was excised sharply. The anterior cruciate ligament was sacrificed. A starting hole was made in the distal femur 1 cm anterior to the posterior cruciate origin. An intramedullary femoral guide was gently inserted planning on 5 valgus distal cut with 9 mm distal resection. The cutting block was pinned in place. The distal cut was then made. The posterior referencing sizing guide was utilized. 3 of external rotation was built into the system and verified off the trans- epicondylar axis and the posterior condyles. I felt size 8 was most appropriate. The cutting block was pinned in place. The anterior, posterior, and chamfer cuts were then made. The bone fragments were removed. A sulcus cut was then made with the appropriate guide. The trial size 8 femoral component was then placed and was fully seated. There was good anterior to posterior and medial to lateral fit. The distal peg holes were then drilled. The trial component was then removed. Attention was then paid towards preparing the proximal tibia. An extra medullary guide was utilized in line with the tibial shaft and second metatarsal distally. A 7 posterior slope was planned. I planned on 2 mm resection from the medial compartment. The cutting block was pinned in place. The proximal tibial cut was then made. The bone was removed in one fragment. The remnants of the medial and lateral menisci were excised the capsule junction with electrocautery. The tibia sized most appropriately at size 7. The posterior osteophytes off the distal femur were carefully removed with a curved osteotome. The trial tibial and femoral components were placed along with a 9 millimeters articular surface. I was able to obtain full flexion and extension with good stability with varus and valgus stress. After several flexion and extension cycles, the tibial rotation was marked with electrocautery in line with the medial one third of the tibial tubercle. Attention was then paid towards preparing the patella. A patella reamer was utilized taking this down to 14 mm of bone stock. A good flush cut was made. The patella sized most appropriately at 38 millimeters. The peg holes were then drilled. The trial component was placed. The knee was taken through a range of motion. I had good patellofemoral tracking with no hands technique. The trial components were then removed. The tibia was prepared in the appropriate rotation with appropriate drill and keel punch. The flexion and extension gaps were checked and felt to be symmetric. The posterior soft tissues were injected with ropivacaine. The bony surfaces were prepared with pulsatile lavage and dried. The deep tibial component was then cemented in place and was fully seated. Excess cement was removed. The femoral component was cemented in place and was fully seated. Again excess cement was removed. The trial 9 millimeters surface was then inserted in the knee was put in full extension. The patella component was cemented in place. After the cement had sufficiently hardened, the knee was again taken through a range of motion. Again there was good stability in flexion and extension with varus and valgus stress. The trial articular surface was then removed. The final articular surface was placed and was impacted. Care was taken to avoid any soft tissue interposition. Pulsatile lavage was again utilized. The tourniquet was deflated with approximately 60 minutes total tourniquet time. There was minimal drainage therefore a deep drain was not placed. The medial parapatellar arthrotomy was then closed with #2 Ethibond suture. The subcutaneous tissues were reapproximated interrupted 2-0 Vicryl sutures. The skin was reapproximated with 3-0 subarticular strata fix suture. Skin tape and adhesive was applied. A sterile dressing was applied. The patient was then awoken from sedation and transferred to recovery room in good condition. Blood loss was estimated at 50 milliliters. No complications were incurred. Sponge and needle counts were correct at the end the case. Jeffry LOWERY assisted during the major components this case to include exposure, bone resection, and implantation.
--- NOTE | 2020-12-13 20:17 | XR ---
EXAMINATION TYPE: XR knee limited RT DATE OF EXAM: 12/13/2020 COMPARISON: NONE HISTORY: Postop knee surgery TECHNIQUE: 2 views FINDINGS: There is right knee prosthesis. Components appear in anatomic position. IMPRESSION: No complicating process seen.
[2020-12-13 20:23] LABS: Glucose,Whole Blood 136 mg/dL (75-99)
[2020-12-13] MEDS ORDERED: SENNOSIDES-DOCUSATE SODIUM 1 EACH TAB PO SCH (21:00)
[2020-12-13 21:14] LABS: Glucose,Whole Blood 156 mg/dL (75-99)
--- NOTE | 2020-12-13 21:20 | P.CONS ---
History of Present Illness - Reason for Consult Consult date: 12/13/20 - History of Present Illness Patient is a 70-year-old male with a PMH of hypertension and type II DM who was admitted for an elective right total knee arthroplasty. The patient underwent the procedure earlier today with no immediate postoperative palpitations. He was seen postoperatively on the surgical unit. Reported excellent control of his pain, currently at a 0 out of 10. He has not been out of bed as of yet and has not passed urine or had a bowel movement or passed flatus. He reported a mild sore throat but denied chest discomfort, shortness of breath or cough, fever. Also denied nausea, vomiting, abdominal pain, diarrhea. Review of systems: Pertinent positives and negatives as discussed in HPI, a complete review of systems was performed and all other systems are negative. Physical examination: General: non toxic, no distress, appears at stated age, overweight Derm: no unusual rashes/lesions no unusual ecchymoses, warm, dry Head: atraumatic, normocephalic, symmetric Eyes: EOMI, no lid lag, anicteric sclera, pupils equal round reactive to light ENT: Nose and ears atraumatic, no thrush, no pharyngeal erythema Neck: No thyromegaly, no cervical lymphadenopathy, trachea midline, supple Mouth: no lip lesion, mucus membranes moist Cardiovascular: S1S2 reg, no murmur, positive posterior tibial pulse bilateral, no edema, capillary refill less than 2 seconds Lungs: CTA bilateral, no rhonchi, no rales , no accessory muscle use Abdominal: soft, nontender to palpation, no guarding, no appreciable organomegaly, normal bowel sounds Ext: no gross muscle atrophy, muscle strength 5 out of 5 in all 4 extremities grossly except right lower extremity postsurgical, no contractures, Neuro: CN II-XI grossly intact, light touch intact all 4 extremities, finger to nose within normal limits, Psych: Alert, oriented, appropriate affect Assessment/plan Chronic conditions: Hypertension, type II DM -Continue with home antihypertensives -Lispro insulin sliding scale and blood glucose monitoring Status post right total knee arthroplasty -Defer management including pain control and antiplatelet (ASA) resumption to primary orthopedic service Past Medical History Past Medical History: Cancer, Chest Pain / Angina, Diabetes Mellitus, GI Bleed, Hyperlipidemia, Hypertension, Myocardial Infarction ([place]), Osteoarthritis (OA), Sleep Apnea/CPAP/BIPAP Additional Past Medical History / Comment(s): occasional angina relieved with rest ., Hx of irregular heart beat., DDD with back pain., ischemic heart ., Hx of fatty liver., Agent Leopold Exposure., sleep apnea (no machine), Diverticulosis., Hx of bleeding ulcer (1995), wears right knee brace., constipation . diet control diabetes, skin cancer, TO HAVE CHEMICAL STRESS Saturday12/12/20 AT 0730 Last Myocardial Infarction Date:: ? LATE OR EARLY History of Any Multi-Drug Resistant Organisms: None Reported Past Surgical History: Appendectomy, Back Surgery, Heart Catheterization Additional Past Surgical History / Comment(s): HEART CATH ([facility]., CERVICAL SURGERY with plate-USED BONE FROM HIS HIP . skin cancer removed from chest, colonoscopy Past Anesthesia/Blood Transfusion Reactions: Previous Problems w/ Anesthesia Additional Past Anesthesia/Blood Transfusion Reaction / Comm: PT STATES WITH CERVICAL SURGERY- VOCAL CORD WAS CUT AND HE COULD NOT SPEAK FOR 8-12 MONTHS. Smoking Status: Former smoker - Past Family History Brother(s) Family Medical History: Deep Vein Thrombosis (DVT) Sister(s) Family Medical History: Deep Vein Thrombosis (DVT) Daughter(s) Family Medical History: Pulmonary Embolus Additional Family Medical History / Comment(s): PE x 12 months Medications and Allergies Home Medications Medication Instructions Recorded Confirmed Type Aspirin 325 mg PO DAILY 01/14/18 12/09/20 History Lidocaine 5% Patch [Lidoderm] 1 patch TOPICAL DAILY 01/14/18 12/09/20 History Metoprolol Tartrate [Lopressor] 25 mg PO BID 01/14/18 12/09/20 History Prazosin HCl 2 mg PO HS 01/14/18 12/09/20 History metFORMIN HCL [Glucophage] 500 mg PO BID 01/14/18 12/09/20 History Baclofen [Lioresal] 5 mg PO TID 7 Days #21 tablet 05/25/20 12/09/20 Rx Lisinopril-Hctz 10-12.5 mg 1 tab PO DAILY 05/25/20 12/09/20 History [Zestoretic 10-12.5] Sennosides/Docusate Sodium [Senna 2 tab PO BID 05/25/20 12/09/20 History Plus 8.6-50 mg Tablet] Ubidecarenone [Co Q-10] 200 mg PO BID 12/09/20 12/09/20 History Allergies Allergy/AdvReac Type Severity Reaction Status Date / Time propoxyphene [From Darvon] Allergy Rash/Hives Verified 12/13/20 14:25 Physical Exam Vitals: Vital Signs Temp Pulse Resp BP Pulse Ox 12/13/20 20:15 53 L 16 160/71 96 12/13/20 20:03 52 L 16 165/77 96 12/13/20 19:45 53 L 16 160/71 96 12/13/20 19:30 53 L 16 136/68 96 12/13/20 19:24 97.1 F L 55 L 16 143/64 95 12/13/20 16:55 62 16 166/86 97 12/13/20 14:18 98.7 F 76 16 147/84 97 Intake and Output 12/13/20 12/13/20 12/13/20 06:59 14:59 22:59 Intake Total 200 1151 Output Total 50 Balance 200 1101 Intake: IV 200 1151 Output: Estimated Blood Loss 50 Other: Weight 92 kg Results Labs: Abnormal Lab Results - Last 24 Hours (Table) 12/13/20 12/13/20 12/13/20 Range/Units 14:40 20:22 21:11 POC Glucose (mg/dL) 105 H 136 H 156 H (75-99) mg/dL
[2020-12-13] MEDS ORDERED: PRAZOSIN 1 MG CAP PO SCH (21:30)
[2020-12-13] MEDS: ENOXAPARIN 30 MG/0.3 ML SYRINGE SQ SCH (22:35)
[2020-12-14] MEDS: LACTATED RINGERS 1,000 ML IV SCH ×2 (05:14→16:31)
[2020-12-14 06:58] LABS: Glucose,Whole Blood 136 mg/dL (75-99)
--- NOTE | 2020-12-14 07:13 | P.PN ---
Progress Note - Text Progress Note Date: 12/14/20 Postoperative day # 1 status post total knee arthroplasty, under spinal anesthesia, and adductor canal catheter placed for postoperative analgesia, currently at ropivacaine 0.2% 8 mL per hour and continuous infusion, visual analogue scale is 4-5/10, patient using oral pain medication for breakthrough pain. Assessment and plan= Acute postoperative pain, adductor canal catheter for pain control, pain is well controlled we'll continue the same management.
[2020-12-14 07:39] VITALS: RESP 18
[2020-12-14] MEDS: INSULIN ASPART (NovoLOG) 100 UNIT/ML VIAL SQ SCH ×4 (07:51→17:19)
[2020-12-14] MEDS: HYDROcodone/APAP 7.5-325MG 1 EACH TAB PO PRN ×2 (07:56→13:36)
[2020-12-14] MEDS: ENOXAPARIN 30 MG/0.3 ML SYRINGE SQ SCH (07:59)
[2020-12-14] MEDS ORDERED: LISINOPRIL-HCTZ 10-12.5 MG 1 EACH TAB PO SCH (09:00)
[2020-12-14 09:36] LABS: Basophils # (A) 0.02 X 10*3/uL (0.00-0.10); Basophils % (A) 0.2 %; Eosinophils # (A) 0.01 X 10*3/uL (0.04-0.35); Eosinophils % (A) 0.1 %; HCT 39.2 % (39.6-50.0); HGB 13.5 g/dL (13.0-17.0); Lymphocytes # (A) 1.15 X 10*3/uL (0.90-5.00); Lymphocytes % (A) 10.3 %; MCH 30.3 pg (27.0-32.0); MCHC 34.4 g/dL (32.0-37.0); MCV 87.9 fL (80.0-97.0); Monocytes # (A) 1.21 X 10*3/uL (0.20-1.00); Monocytes % (A) 10.8 %; Neutrophils # (A) 8.75 X 10*3/uL (1.80-7.70); Neutrophils % (A) 78.2 %; Platelet Count 182 X 10*3/uL (140-440); RBC 4.46 X 10*6/uL (4.40-5.60); RDW 13.3 % (11.5-14.5); WBC 11.19 X 10*3/uL (4.50-10.00)
--- NOTE | 2020-12-14 10:23 | P.PN ---
Subjective Progress Note Date: 12/14/20 Principal diagnosis: Status post right total knee arthroplasty Patient was evaluated today at bedside, he is resting comfortably in his hospital chair. He was waiting for physical therapy to ambulate. He has been up to the bathroom a few times, is having no issues with urinating. He is passing gas. His pain is currently controlled. He denies any headaches, lightheadedness, chest pain or shortness of breath. Objective - Vital Signs Vital signs: Vital Signs Temp 97.7 F 12/14/20 07:39 Pulse 72 12/14/20 07:39 Resp 18 12/14/20 07:39 BP 131/74 12/14/20 07:39 Pulse Ox 94 L 12/14/20 07:39 Intake & Output 12/13/20 12/14/20 12/14/20 18:59 06:59 18:59 Intake Total 1251 100 Output Total 50 700 Balance 1201 -600 Weight 92 kg 92 kg Intake: IV 1251 100 Output: Urine 700 Estimated Blood Loss 50 Other: Voiding Method Toilet Toilet Urinal Urinal - Exam Right lower extremity: Incision is clean, dry, and intact. The exofin fusion tape is in good condition. There is minimal soft tissue swelling and ecchymosis surrounding the medial and lateral aspects of the incision. Calf is soft, no tenderness with palpation. Plantar flexion, dorsiflexion, EHL, FHL are intact. Sensory exam to light touch throughout the extremity is intact, dorsal pedis pulses 2+. - Labs CBC & Chem 7: 12/14/20 05:52 Labs: Abnormal Lab Results - Last 24 Hours (Table) 12/13/20 12/13/20 12/13/20 Range/Units 14:40 20:22 21:11 WBC (4.50-10.00) X 10*3/uL Hct (39.6-50.0) % Immature Gran # (0.00-0.04) X 10*3/uL Neutrophils # (1.80-7.70) X 10*3/uL Monocytes # (0.20-1.00) X 10*3/uL Eosinophils # (0.04-0.35) X 10*3/uL POC Glucose (mg/dL) 105 H 136 H 156 H (75-99) mg/dL 12/14/20 12/14/20 Range/Units 05:52 06:56 WBC 11.19 H (4.50-10.00) X 10*3/uL Hct 39.2 L (39.6-50.0) % Immature Gran # 0.05 H (0.00-0.04) X 10*3/uL Neutrophils # 8.75 H (1.80-7.70) X 10*3/uL Monocytes # 1.21 H (0.20-1.00) X 10*3/uL Eosinophils # 0.01 L (0.04-0.35) X 10*3/uL POC Glucose (mg/dL) 136 H (75-99) mg/dL Assessment and Plan Assessment: Postoperative day #1 status post right total knee arthroplasty Plan: Pain control, continue with current oral medication DVT prophylaxis, plan for discharge on Eliquis 2.5 mg twice a day weeks Wound care instructions were discussed, this including icing and elevating on showering Encourage incentive spirometer Medical recommendations Discharge planning: Patient progresses with physical therapy plan for discharge home today Time with Patient: Less than 30
--- NOTE | 2020-12-14 10:28 | P.DS ---
Providers Date of admission: 12/13/2020 Expected date of discharge: 12/14/20 Attending physician: Lewis Correia Consults: 12/13/20 18:46 Consult Physician Routine Consulting Provider: Lima Arenas Consult Reason/Comments: Medical Management s/p right total knee arthroplasty Do you want consulting provider notified?: Yes Primary care physician: [facility] Hospital Course: Date of admission: 12/13/2020 Date of discharge: 12/14/2020 Admission diagnosis: Status post right total knee arthroplasty Discharge diagnosis: Same Attending physician: Dr. Correia Surgical procedures: Right total knee arthroplasty Brief history: Patient is a 70-year-old male with a history of progressive primary right knee osteoarthritis. At this point patient has failed conservative treatment measures and has opted to proceed with a elective right total knee arthroplasty. Hospital course: Details of patient's surgery can be found in operative report. Patient tolerated the procedure well and was subsequently transported to orthopedic floor. Patient's orthopeidc and medical care was provided daily. Patient had daily laboratory tests performed for evaluation of overall blood counts. Patient had daily physical therapy to include strengthening range of motion as well as education with walker ambulation. Patient was treated with Xarelto for their postoperative DVT prophylaxis during their inpatient stay. Patient was noted to have a relatively uneventful postoperative course. Patient reported satisfactory pain control with oral pain medications by postoperative day 0. Patient showed satisfactory progress with physical therapy. Patient moved steadily through the program and had no difficulty meeting the goals by postoperative day 1. Given patient's otherwise satisfactory course and having met physical therapy goals, plan is to discharge patient home on postoperative day 1. Discharge condition/disposition: Patient will be discharged home in stable condition. Discharge medications: Instructions are given on resumption of patient's normal daily medications per primary care recommendation, in addition patient will be prescribed Essie 7.5 mg/325 mg, Colace 100 mg, Eliquis 2.5 mg. Discharge instructions: 1. Wound care and infection precautions, keep incision dry and covered while showering, no lotions, creams, moisturizers. No soaking, tubs, pools, hottubs. Do not scrub over the incision. 2. Weight-bear as tolerated with walker / cane until follow-up. 3. Ice and elevate when necessary. Do not exceed 20 minutes per hour with ice pack. 4. Utilize compression sleeve until seen at first follow up appointment. 5. Visiting nursing care. 6. Home physical therapy including home CPM. 7. Pain meds and anticoagulants per prescription. 8. Pain medication has potential to cause constipation. Increase oral fluid and fiber intake. Contact primary care provider if you have not had a bowel movement within 48 hours after discharge 9. No anti-inflammatory medication until discussed at first post operative visit, this including Motrin, Aleve, Mobic, Diclofenac. 10. Follow up in office at 2 weeks postop with Jeffry Badillo PA-C/Isaias Abarca 11. Follow up with your primary care doctor 7-10 days after discharge. 12. Contact [facility] with any questions, . Procedures: Right total knee arthroplasty Patient Condition at Discharge: Good Plan - Discharge Summary Discharge Rx Participant: Yes New Discharge Prescriptions: New Docusate [Colace] 100 mg PO DAILY #30 cap Apixaban [Eliquis] 2.5 mg PO BID #60 tab HYDROcodone/APAP 7.5-325MG [Essie 7.5] 1 - 2 each PO Q6HR PRN #42 tab PRN Reason: Pain Discontinued Aspirin 325 mg PO DAILY No Action Metoprolol Tartrate [Lopressor] 25 mg PO BID metFORMIN HCL [Glucophage] 500 mg PO BID Prazosin HCl 2 mg PO HS Lidocaine 5% Patch [Lidoderm] 1 patch TOPICAL DAILY Lisinopril-Hctz 10-12.5 mg [Zestoretic 10-12.5] 1 tab PO DAILY Sennosides/Docusate Sodium [Senna Plus 8.6-50 mg Tablet] 2 tab PO BID Baclofen [Lioresal] 5 mg PO TID 7 Days #21 tablet Ubidecarenone [Co Q-10] 200 mg PO BID Discharge Medication List Lidocaine 5% Patch [Lidoderm] 1 patch TOPICAL DAILY 01/14/18 [History] Metoprolol Tartrate [Lopressor] 25 mg PO BID 01/14/18 [History] Prazosin HCl 2 mg PO HS 01/14/18 [History] metFORMIN HCL [Glucophage] 500 mg PO BID 01/14/18 [History] Baclofen [Lioresal] 5 mg PO TID 7 Days #21 tablet 05/25/20 [Rx] Lisinopril-Hctz 10-12.5 mg [Zestoretic 10-12.5] 1 tab PO DAILY 05/25/20 [History] Sennosides/Docusate Sodium [Senna Plus 8.6-50 mg Tablet] 2 tab PO BID 05/25/20 [History] Ubidecarenone [Co Q-10] 200 mg PO BID 12/09/20 [History] Apixaban [Eliquis] 2.5 mg PO BID #60 tab 12/14/20 [Rx] Docusate [Colace] 100 mg PO DAILY #30 cap 12/14/20 [Rx] HYDROcodone/APAP 7.5-325MG [Essie 7.5] 1 - 2 each PO Q6HR PRN #42 tab 12/14/20 [Rx] Follow up Appointment(s)/Referral(s): [facility] [NON-STAFF] - As Needed ([facility] will call you to schedule your first visit. ) Isaias Villar, PAC [PHYSICIAN MUSHROOM CULTIVATOR] - 2 Weeks Activity/Diet/Wound Care/Special Instructions: Orthopedic Discharge Instructions: 1. Wound care and infection precautions, keep incision dry and covered while showering, no lotions, creams, moisturizers. No soaking, pools, hot tubs. Do not scrub over incision. 2. Weight-bear as tolerated with walker / cane until follow-up. 3. Ice and elevate when necessary. Do not exceed 20 minutes per hour with ice pack. 4. Utilize compression sleeve until seen at first follow up appointment. 5. Pain meds and anticoagulants per prescription. 6. Pain medication has potential to cause constipation. Increase oral fluid and fiber intake. Contact primary care provider if you have not had a bowel movement within 48 hours after discharge. 7. No anti-inflammatory medication until discussed at first post operative visit, this including Motrin, Aleve, Mobic, Diclofenac. 8. Follow up in office at 2 weeks postop with Jeffry Badillo PA-C/Isaias Villar PA-C 9. Follow up with your primary care doctor 7-10 days after discharge. 10. Contact [facility] with any questions, . Discharge Disposition: HOME WITH HOME HEALTH SERVICES
[2020-12-14 10:46] LABS: African American GFR (CKD) 86 (>60 ml/min/1.73 sqM); Anion Gap 10 mmol/L; Blood Urea Nitrogen 22 mg/dL (9-20); Calcium 9.6 mg/dL (8.4-10.2); Carbon Dioxide 26 mmol/L (22-30); Chloride 103 mmol/L (98-107); Glucose 139 mg/dL (74-99); Non-African American GFR(CKD) 75 (>60 ml/min/1.73 sqM); Potassium 3.9 mmol/L (3.5-5.1); Sodium 139 mmol/L (137-145)
[2020-12-14 11:27] LABS: Glucose,Whole Blood 117 mg/dL (75-99)
--- NOTE | 2020-12-14 12:31 | P.PN ---
Subjective Progress Note Date: 12/14/20 Patient is evaluated at the bedside today he is postop day #1 right total knee arthroplasty. Patient reports minimal pain radiating a 2 out of 10 to his right knee, he states that he is receiving pain medication as well as his pain ball. He denies any numbness or tingling to the right lower extremity. He reports doing well with PT OT and feels that he is ready for discharge. He denies any chest pain or chest pressure. He denies any cough or shortness of breath. Denies any nausea vomiting, abdominal pain or diarrhea. He states that he is tolerating a diet well. He is passing gas however has not had a bowel movement yet. He is not having any difficulty passing urine. Patient will take eliquis for the next month for DVT prophylaxis as recommended by surgical services. Vital signs reveal a temperature of 97.7, heart rate 72 sinus rhythm, blood pressure 131/74, 94% on room air. Labs today reveal a white blood cell count of 11.19, hemoglobin stable at 13.5, potassium 3.9, BUN 22, creatinine 1.01. Patient's blood sugars are between 110s to 150s. He can resume his metformin on discharge. ROS Constitutional: Denied any fatigue denied any fever. Cardio vascular: denied any chest pain, palpitations Gastrointestinal denied any nausea vomiting Pulmonary: Denied any shortness of breath cough Neurologic denied any new focal deficits All inpatient medications were reviewed and appropriate changes in these medications as dictated in the interval history and assessment and plan. PHYSICAL EXAMINATION: GENERAL: The patient is alert and oriented x3, not in any acute distress. Well developed, well nourished. HEENT: Pupils are round and equally reacting to light. EOMI. No scleral icterus. No conjunctival pallor. Normocephalic, atraumatic. No pharyngeal erythema. No thyromegaly. CARDIOVASCULAR: S1 and S2 present. No murmurs, rubs, or gallops. PULMONARY: Chest is clear to auscultation, no wheezing or crackles. ABDOMEN: Soft, nontender, nondistended, normoactive bowel sounds. No palpable organomegaly. MUSCULOSKELETAL: Minimal tenderness surrounding the right knee, +2 dorsalis pedis bilateral EXTREMITIES: No cyanosis, clubbing, minimal nonpitting ankle edema on the right NEUROLOGICAL: Gross neurological examination did not reveal any focal deficits. SKIN: No rashes. Assessment and plan Assessment Osteoarthritis of the right knee Postop day #1 total right knee arthroplasty Hypertension Diabetes mellitus type 2, with hyperglycemia -Leukocytosis, most likely reactive will repeat in 3 days outpatient Hyperlipidemia History of sleep apnea, does not use a CPAP History of coronary artery disease with heart cath at [facility] in 2016 GI prophylaxis DVT prophylaxis xarelto on discharge plan Patient is cleared medically for discharge. He will be discharged home with a consult to PT OT for in-home therapy. Pain management and DVT prophylaxis per surgical services. Repeat labs in 3 days outpatient. Patient can resume all other home medications. Discharge on Pepcid for GI prophylaxis for the next month. Thank you kindly for this consultation and allowing us to participate in the care of this patient. Objective - Vital Signs Vital signs: Vital Signs Temp 97.7 F 12/14/20 07:39 Pulse 72 12/14/20 07:39 Resp 18 12/14/20 07:39 BP 131/74 12/14/20 07:39 Pulse Ox 94 L 12/14/20 07:39 Intake & Output 12/13/20 12/14/20 12/14/20 18:59 06:59 18:59 Intake Total 1251 100 Output Total 50 700 Balance 1201 -600 Weight 92 kg 92 kg Intake: IV 1251 100 Output: Urine 700 Estimated Blood Loss 50 Other: Voiding Method Toilet Toilet Urinal Urinal - Labs CBC & Chem 7: 12/14/20 05:52 12/14/20 09:35 Labs: Abnormal Lab Results - Last 24 Hours (Table) 12/13/20 12/13/20 12/13/20 Range/Units 14:40 20:22 21:11 WBC (4.50-10.00) X 10*3/uL Hct (39.6-50.0) % Immature Gran # (0.00-0.04) X 10*3/uL Neutrophils # (1.80-7.70) X 10*3/uL Monocytes # (0.20-1.00) X 10*3/uL Eosinophils # (0.04-0.35) X 10*3/uL BUN (9-20) mg/dL Glucose (74-99) mg/dL POC Glucose (mg/dL) 105 H 136 H 156 H (75-99) mg/dL 12/14/20 12/14/20 12/14/20 Range/Units 05:52 06:56 09:35 WBC 11.19 H (4.50-10.00) X 10*3/uL Hct 39.2 L (39.6-50.0) % Immature Gran # 0.05 H (0.00-0.04) X 10*3/uL Neutrophils # 8.75 H (1.80-7.70) X 10*3/uL Monocytes # 1.21 H (0.20-1.00) X 10*3/uL Eosinophils # 0.01 L (0.04-0.35) X 10*3/uL BUN 22 H (9-20) mg/dL Glucose 139 H (74-99) mg/dL POC Glucose (mg/dL) 136 H (75-99) mg/dL 12/14/20 Range/Units 11:23 WBC (4.50-10.00) X 10*3/uL Hct (39.6-50.0) % Immature Gran # (0.00-0.04) X 10*3/uL Neutrophils # (1.80-7.70) X 10*3/uL Monocytes # (0.20-1.00) X 10*3/uL Eosinophils # (0.04-0.35) X 10*3/uL BUN (9-20) mg/dL Glucose (74-99) mg/dL POC Glucose (mg/dL) 117 H (75-99) mg/dL Assessment and Plan Time with Patient: Greater than 30
[2020-12-14 13:14] VITALS: BP 126/67; PULSE 73; TEMP 98.8
[2020-12-14 16:34] LABS: Glucose,Whole Blood 135 mg/dL (75-99)
== END 2020-12-14 17:48 | disposition home health service (06) ==
LOC: OR 13:37 → 4SSUR 19:24 → OR 12-14 17:48
PROVIDERS: ATTEND Orthopaedic Surgery
DX: M17.11 Unilateral primary osteoarthritis, right knee (principal); M21.161 Varus deformity, not elsewhere classified, right knee; I11.9 Hypertensive heart disease without heart failure; E78.5 Hyperlipidemia, unspecified; E11.40 Type 2 diabetes mellitus with diabetic neuropathy, unspecified; G47.30 Sleep apnea, unspecified; F17.290 Nicotine dependence, other tobacco product, uncomplicated; Z98.890 Other specified postprocedural states; I25.2 Old myocardial infarction; Z87.11 Personal history of peptic ulcer disease; Z85.828 Personal history of other malignant neoplasm of skin; Z82.49 Family history of ischemic heart disease and other diseases of the circulatory system; Z80.9 Family history of malignant neoplasm, unspecified; Z77.098 Contact with and (suspected) exposure to other hazardous, chiefly nonmedicinal, chemicals; Z79.84 Long term (current) use of oral hypoglycemic drugs; Z79.82 Long term (current) use of aspirin; Z79.899 Other long term (current) drug therapy; Z88.5 Allergy status to narcotic agent
CPT/HCPCS: 97161; 64999; 64448; 76942; 80048; 85025; 87635; 73560; 27447; C1713 ×2; C1776; J2250; J1100; J0690 ×3; J2405; J3010; J1650 ×2; J1170; J2795; 88300

== ENCOUNTER 2021-02-28 08:40 | Day surgery (SDC) | payer OTHER ==
[2021-02-24 11:34] VITALS: BMI 27.3
--- NOTE | 2021-02-27 12:22 | HP ---
HISTORY AND PHYSICAL CHIEF COMPLAINT: Right knee stiffness. HISTORY OF PRESENT ILLNESS: The patient is a 70-year-old male who presents after undergoing right total knee arthroplasty on 12/13/2020 with persistent stiffness despite adequate rehabilitation. He denies any fevers or chills. He has been attending therapy. PAST MEDICAL HISTORY: Significant type 2 diabetes, hypertension, coronary artery disease, neuropathy, hyperlipidemia, and DVT. PAST SURGICAL HISTORY: Significant for neck surgery, hand surgery, appendectomy in addition to right total knee arthroplasty. CURRENT MEDICATIONS: Aspirin, metformin, Prazosin, Hydrochlorothiazide, metoprolol, tramadol and Eliquis. He denies drug allergies. FAMILY HISTORY: Significant for heart disease and cancer. SOCIAL HISTORY: Significant for social alcohol use. REVIEW OF SYSTEMS: Sixteen-point review of systems otherwise reviewed and is noncontributory. PHYSICAL EXAMINATION: On examination, the patient is approximately 6 feet tall, 195 pounds of mesomorphic habitus. HEENT exam is nonfocal. Neck is supple. He has painless passive motion of the right hip. Straight leg raise is negative. Active motion right knee -15 to 80 degrees of flexion. There is no warmth or erythema. He has no real joint line tenderness. He is stable to varus and valgus stress. His distal neurovascular exam appears intact in the right lower extremity. Previous x-rays of the right knee obtained in the office show a total knee arthroplasty in overall good alignment. IMPRESSION: 1. Status post right total knee arthroplasty. 2. Arthrofibrosis, right knee. 3. Deep vein thrombosis. RECOMMENDATIONS: I talked to the patient at length regarding his condition along with treatment options. At this point, he remains quite stiff despite adequate rehabilitation. After thorough discussion, he opts to proceed with manipulation under anesthesia. We will reinstitute formal therapy after the procedure. Risks and benefits were discussed at length in layman's terms. MMODL / IJN: [id number] /
[~2021-02-28 08:40] MED LIST changes: -ACETAMINOPHEN TAB 500 MG TAB PO PRN; -HYDROmorphone 0.5 MG/0.5 ML SYRINGE IVP PRN; +LACTATED RINGERS 1,000 ML IV SCH; -MELOXICAM 7.5 MG TAB PO PRN; -ROPIVACAINE/EPI/CLONIDINE/KET 50 ML SYRINGE MISCELLANE PRN; -TRANEXAMIC ACID 1,000 MG in SODIUM CHLORIDE 0.9% 100 ML IVPB PRN
[2021-02-28 09:06] LABS: Glucose,Whole Blood 131 mg/dL (75-99)
[2021-02-28] MEDS ORDERED: MIDAZOLAM 2 MG/2 ML VIAL ONE (10:07)
[2021-02-28] MEDS ORDERED: PROPOFOL 10 MG/ML 20 ML VIAL IV ONE (10:07)
[2021-02-28] MEDS ORDERED: .fentaNYL (PF) 50 MCG/ML 2 ML AMP ONE (10:07)
--- NOTE | 2021-02-28 10:17 | P.OP ---
Date of Procedure: 02/28/21 Preoperative Diagnosis: Arthrofibrosis right knee status post total knee arthroplasty Postoperative Diagnosis: Same Procedure(s) Performed: Manipulation under anesthesia right knee Anesthesia: MAC Surgeon: Lewis Correia Estimated Blood Loss (ml): 0 Pathology: none sent Condition: stable Disposition: PACU Indications for Procedure: The patient's a 70-year-old male who underwent right total knee arthroplasty recently had persistent stiffness despite adequate rehabilitation. A discussion of the risks and benefits of manipulation under anesthesia made with patient. He opted to proceed. Risks of the procedure to include fracture, tendon rupture, recurrence of stiffness and need for subsequent procedures was discussed. Informed consent was obtained. Operative Findings: As below Description of Procedure: The patient was brought to the recovery room, and after induction of IV sedation I gently manipulated the right knee. I was able to obtain 115 of flexion. Moderate adhesions were encountered. I was able to obtain -10 full extension. He was monitored until fully awake. No complications were incurred. There was no blood loss.
[2021-02-28 10:25] VITALS: TEMP 98.6
[2021-02-28] MEDS: HYDROmorphone 0.5 MG/0.5 ML SYRINGE IVP PRN ×2 (10:31→10:40)
[2021-02-28 10:58] VITALS: RESP 16
[2021-02-28 11:23] VITALS: BP 148/80; PULSE 68
== END 2021-02-28 11:53 | disposition home health service (06) ==
LOC: OR 08:40
PROVIDERS: ATTEND Orthopaedic Surgery
DX: M24.661 Ankylosis, right knee (principal); Z96.651 Presence of right artificial knee joint
CPT/HCPCS: 27570; J2250; J1100; J2405; J3010; J2704; J1170